=== PATIENT | female | born 2000 | race African-American/Black ===

== ENCOUNTER 2020-01-09 03:32 | Emergency (ER) | payer OTHER ==
[~2020-01-09] VITALS: Ht 167.6 cm; Wt 83.9 kg
[2020-01-09 03:33] VITALS: BP 109/68
[2020-01-09] MEDS ORDERED: PREN-96 PO (03:46)
== END 2020-01-09 05:41 | disposition home or self-care (01) ==
LOC: ER 03:32
DX: O26.893 Other specified pregnancy related conditions, third trimester (principal); S46.912A Strain of unspecified muscle, fascia and tendon at shoulder and upper arm level, left arm, initial encounter; S96.912A Strain of unspecified muscle and tendon at ankle and foot level, left foot, initial encounter; Z3A.36 36 weeks gestation of pregnancy; W18.11XA Fall from or off toilet without subsequent striking against object, initial encounter; Y93.89 Activity, other specified; Y92.89 Other specified places as the place of occurrence of the external cause; Y99.8 Other external cause status